=== PATIENT | female | born 1960 | race African-American/Black ===

== ENCOUNTER 2024-02-03 15:06 | Emergency (ER) | payer MEDICARE, MEDICAID ==
[~2024-02-03] VITALS: Ht 165.1 cm; Wt 73.0 kg
[2024-02-03 15:12] VITALS: BP 118/50; PULSE 82; RESP 16; TEMP 97.6; O2SAT 99
[2024-02-03] MEDS ORDERED: CHOL400D7 PO (15:26)
[2024-02-03] MEDS ORDERED: MULT-230 PO (15:26)
[2024-02-03] MEDS ORDERED: ESCI10TA PO (15:26)
[2024-02-03] MEDS ORDERED: OLAN10TA3 PO (15:26)
[2024-02-03] MEDS ORDERED: HALO100A IM (15:26)
[2024-02-03] MEDS ORDERED: DOCU250C14 GT (15:26)
[2024-02-03] MEDS: FAMOTIDINE 20MG TABLET PO SCH (15:46)
[2024-02-03] MEDS: PREDNISONE 20MG TABLET PO ONE (15:46)
[2024-02-03] MEDS: DIPHENHYDRAMINE 50MG CAPSULE PO ONE (15:52)
[2024-02-03] MEDS: DIPHENHYDRAMINE 25MG CAPSULE PO NR (15:52)
[2024-02-03] MEDS ORDERED: DIPH25CA83 PO (18:48)
[2024-02-03] MEDS ORDERED: P20 MT (18:48)
[2024-02-03] MEDS ORDERED: FAMO40TA70 MT (18:48)
== END 2024-02-03 22:53 | disposition home or self-care (01) ==
LOC: ER 15:06
DX: T78.49XA Other allergy, initial encounter (principal); F20.9 Schizophrenia, unspecified; Z88.0 Allergy status to penicillin; X58.XXXA Exposure to other specified factors, initial encounter
CPT/HCPCS: 99283; Q0163 ×2; J7512